=== PATIENT | female | born 2000 | race Hispanic/Latino ===

== ENCOUNTER 2019-10-06 10:10 | Emergency (ER) | payer OTHER ==
[2019-10-07 14:14] LABS: SARS-CoV-2 MS2 Positive; SARS-CoV-2 N Gene Negative; SARS-CoV-2 S Gene Negative; SARS-CoV-2 orf1ab Negative
== END 2019-10-06 10:30 | disposition home or self-care (01) ==
LOC: ERS 10:10
DX: R51 Headache (principal); R19.7 Diarrhea, unspecified; R05 Cough; Z20.828 Contact with and (suspected) exposure to other viral communicable diseases
CPT/HCPCS: 87635; 99283; U0003

== ENCOUNTER 2023-01-13 16:29 | Emergency (ER) | payer OTHER | END 2023-01-13 18:06 | disposition home or self-care (01) | LOC: ERS 16:29 | DX: T16.1XXA Foreign body in right ear, initial encounter (principal) | CPT/HCPCS: 69200 ==